=== PATIENT | female | born 1960 ===

== ENCOUNTER 2021-04-13 05:05 | Inpatient (IN) | payer BC ==
[2021-04-13] MEDS ORDERED: Morphine 4 MG/ML VIAL ONE (05:39)
[2021-04-13] MEDS ORDERED: Ondansetron PF 4 MG/2 ML Vial ONE (05:39)
[2021-04-13] MEDS ORDERED: Zolpidem Tartrate 5 MG TAB PO PRN (06:00)
[2021-04-13] MEDS ORDERED: HYDROcodone/Acetaminophen 5/325 mg Tablet PO PRN ×2 (06:00)
[2021-04-13] MEDS ORDERED: Ondansetron PF 4 MG/2 ML Vial IVP PRN (06:00)
[2021-04-13] MEDS ORDERED: Calcium Carbonate 500 MG ChewTAB PO PRN (06:00)
[2021-04-13] MEDS ORDERED: Guaifenesin DM 100-10/5 ML UDCUP PO PRN (06:00)
[2021-04-13] MEDS ORDERED: Acetaminophen 325 MG TAB PO PRN (06:00)
[2021-04-13] MEDS ORDERED: Senokot S 8.6-50 MG TAB PO PRN (06:00)
[2021-04-13] MEDS ORDERED: Albuterol Sulfate 2.5 mg/3 ml Neb NEB PRN (06:03)
[2021-04-13] MEDS ORDERED: Fioricet 325/50/40 mg Tablet PO PRN (06:03)
[2021-04-13] MEDS ORDERED: Sodium Chloride 0.9% 500 ML IV SCH (06:30)
[2021-04-13 06:53] LABS: #Basophils 0.1 10x3/uL (0.0-0.2); #Eosinphils 0.2 10x3/uL (0.0-0.5); #Monocytes 0.8 10x3/uL (0.0-1.1); #Neutrophils 6.5 10x3/uL (1.5-8.4); %Basophils 0.5 % (0.0-2.0); %Eosinophils 1.4 % (0.0-6.0); %Monocytes 7.4 % (0.0-10.0); %Neutrophils 60.5 % (40.0-75.0); Hemoglobin 11.4 g/dL (12.0-15.5); Mean Corpuscular HGB CONC 31.5 g/dL (32.0-36.0); Mean Corpuscular Hemoglobin 21.9 pg (27.0-33.0); Mean Corpuscular Volume 69.6 fl (81.6-98.3); Mean Platelet Volume 10.6 fl (7.4-10.4); Platelet Count 244 10x3/uL (150-450); RBC Distribution Width 14.6 % (11.5-14.5); White Blood Cell (WBC) Count 10.7 10x3/uL (3.5-10.5)
[2021-04-13 07:06] LABS: PTT 27.7 sec (22.0-33.0); Prothrombin Time 11.3 sec (9.5-12.1)
[2021-04-13 07:10] LABS: ALT (SGPT) 11 U/L (8-55); AST (SGOT) 9 U/L (5-34); Albumin 3.5 g/dL (3.5-5.0); Alkaline Phosphatase 77 U/L (40-110); Anion Gap 14 mmol/L (10-20); BUN (Urea Nitrogen) 6 mg/dL (9.8-20.1); Bilirubin, Total 0.4 mg/dL (0.2-1.2); Calc. Creatinine Clearance 0 mL/min (70-130); Calcium 9.3 mg/dL (7.8-10.44); Carbon Dioxide 23 mmol/L (22-29); Chloride 106 mmol/L (98-107); Globulin 2.6 g/dL (2.4-3.5); Glucose 114 mg/dL (70-105); Protein, Total 6.1 g/dL (6.0-8.3); Sodium 139 mmol/L (136-145)
[2021-04-13] MEDS ORDERED: Enoxaparin Sodium 80 MG/0.8 ML SYRINGE ONE (07:49)
[2021-04-13 07:56] LABS: Hypochromia SLIGHT = 6-15 cells (100X) (0-5/hpf); Microcytosis SLIGHT = 6-15 cells (100X) (0-5/hpf)
[2021-04-13 07:57] LABS: Platelet Morphology Comment Appears Adequate
[2021-04-13] MEDS ORDERED: Acetaminophen 325 MG TAB ONE (10:06)
[2021-04-13] MEDS ORDERED: Famotidine 20 MG TAB ONE (10:11)
[2021-04-13 11:08] LABS: SARS-CoV-2 NAA Rapid Test Not Detected (NotDetected)
[2021-04-13] MEDS: Enoxaparin Sodium 80 MG/0.8 ML SYRINGE SC SCH ×2 (15:59→21:15)
[2021-04-13] MEDS: Famotidine 20 MG TAB PO SCH ×2 (16:00→21:15)
[2021-04-13 16:52] VITALS: BMI 32.1
[2021-04-13] MEDS ORDERED: [UNRECOGNIZED DRUG - OTHER] PO PRN (18:32)
[2021-04-13] MEDS ORDERED: BUTALBIT PO PRN (18:32)
[2021-04-13] MEDS ORDERED: ACETAMIN PO PRN (18:32)
[2021-04-13] MEDS ORDERED: diphenhydrAMINE 50 MG/ML VIAL IVP PRN (18:32)
[2021-04-13] MEDS ORDERED: CODEINE PO PRN (18:32)
[2021-04-13] MEDS ORDERED: Prochlorperazine Edisylate 10 MG in Sodium Chloride 0.9% 50 ML IVPB PRN (18:32)
[2021-04-13] MEDS ORDERED: CAFF PO PRN (18:32)
[2021-04-14 04:40] LABS: #Eosinphils 0.2 10x3/uL (0.0-0.5); #Monocytes 0.6 10x3/uL (0.0-1.1); #Neutrophils 3.3 10x3/uL (1.5-8.4); %Basophils 0.6 % (0.0-2.0); %Eosinophils 3.4 % (0.0-6.0); %Lymphocytes 38.4 % (18.0-47.0); %Monocytes 8.9 % (0.0-10.0); %Neutrophils 47.5 % (40.0-75.0); Hemoglobin 11.2 g/dL (12.0-15.5); Mean Corpuscular HGB CONC 31.6 g/dL (32.0-36.0); Mean Corpuscular Hemoglobin 21.7 pg (27.0-33.0); Mean Corpuscular Volume 68.7 fl (81.6-98.3); Mean Platelet Volume 11.3 fl (7.4-10.4); Platelet Count 255 10x3/uL (150-450); RBC Distribution Width 14.4 % (11.5-14.5); Red Blood Cell (RBC) Count 5.15 10x6/uL (3.90-5.03); White Blood Cell (WBC) Count 6.9 10x3/uL (3.5-10.5)
[2021-04-14 04:46] LABS: Anion Gap 13 mmol/L (10-20); BUN (Urea Nitrogen) 6 mg/dL (9.8-20.1); Calc. Creatinine Clearance 114 mL/min (70-130); Calcium 9.6 mg/dL (7.8-10.44); Carbon Dioxide 24 mmol/L (22-29); Chloride 107 mmol/L (98-107); Glucose 94 mg/dL (70-105); Potassium 3.9 mmol/L (3.5-5.1); Sodium 140 mmol/L (136-145)
[2021-04-14] MEDS ORDERED: Apixaban 5 MG TAB PO SCH (09:00)
[2021-04-14] MEDS: Famotidine 20 MG TAB PO SCH (09:10)
[2021-04-14 09:34] LABS: Bilirubin Neg (Negative); Blood, Urine Negative (Negative); Clarity Clear (Clear); Glucose, Urine (Dipstick) Normal (Negative); Ketone, Urine Negative (Negative); Leukocyte Negative (Negative); Nitrite Negative (Negative); Protein, Urine (Dipstick) Negative (Neg-Trace); Specific Gravity, Urine 1.005 (1.002-1.036); Urobilinogen Normal mg/dL (Less than 2)
[2021-04-14 09:47] LABS: Bacteria/HPF None Seen HPF (None Seen); RBC/HPF None Seen HPF (0-3); Squamous Epithelial None Seen HPF (0-3); WBC/HPF None Seen HPF (0-3)
[2021-04-14 11:41] VITALS: BP 141/87; TEMP 98
[2021-04-14] MEDS ORDERED: hydrOXYzine 25 MG TAB PO SCH (12:15)
== END 2021-04-14 13:55 | disposition home or self-care (01) | DRG 299 ==
LOC: SUATTDRO 05:05 → CSHERS 05:05 → CSHERHOLD 07:44 → CSHTELE 14:55
PROVIDERS: ADMIT Family Medicine; ATTEND Family Medicine
DX: T81.718A Complication of other artery following a procedure, not elsewhere classified, initial encounter (principal); J96.01 Acute respiratory failure with hypoxia; R65.10 Systemic inflammatory response syndrome (SIRS) of non-infectious origin without acute organ dysfunction; I26.99 Other pulmonary embolism without acute cor pulmonale; Z90.710 Acquired absence of both cervix and uterus; Z90.49 Acquired absence of other specified parts of digestive tract; Z87.891 Personal history of nicotine dependence; J45.909 Unspecified asthma, uncomplicated; D50.9 Iron deficiency anemia, unspecified; Z20.822 Contact with and (suspected) exposure to COVID-19; G43.909 Migraine, unspecified, not intractable, without status migrainosus
CPT/HCPCS: 0240U; 36415; 80048; 80053; 81001; 83880; 84484; 85025; 85610; 85730; 87040; 93005; 93306; 93970; 94760; 96372; 96374; 96375; J1650; J2270; J2405